=== PATIENT | male | born 1980 | race Caucasian/White ===

== ENCOUNTER 2017-03-18 16:01 | Inpatient (IN) ==
[2017-03-19] MEDS ORDERED: *HR* OxyCODONE/APAP 5/325 TABLET PO PRN (15:41)
[2017-03-19] MEDS ORDERED: Gabapentin 300 MG CAPSULE PO SCH (15:41)
[2017-03-19] MEDS ORDERED: Acetaminophen 325 MG TABLET PO SCH (16:00)
[2017-03-19] MEDS ORDERED: Acetaminophen 325 MG TABLET PO PRN (16:14)
[2017-03-19] MEDS: Cholecalciferol (D-3) 1,000 UNIT TABLET PO SCH (16:20)
[2017-03-19] MEDS: *HR* OxyCODONE Immed Rel 5 MG TABLET PO PRN ×2 (16:20→20:22)
[2017-03-19] MEDS: Methocarbamol 750 MG TABLET PO SCH ×2 (17:28→20:21)
[2017-03-19] MEDS: *HR* Heparin 5,000 UNIT/ML VIAL SQ SCH (17:28)
[2017-03-19] MEDS: Gabapentin 300 MG CAPSULE PO SCH (20:21)
[2017-03-19] MEDS: Sennosides 8.6 MG TABLET PO SCH (20:22)
[2017-03-20] MEDS: *HR* Heparin 5,000 UNIT/ML VIAL SQ SCH ×2 (06:20→17:02)
[2017-03-20] MEDS: *HR* OxyCODONE Immed Rel 5 MG TABLET PO PRN ×2 (06:20→16:05)
[2017-03-20 07:17] LABS: Basophils # 0.1 K/mcL (0.0-0.2); Basophils % 0.6 %; Eosinophils # 0.2 K/mcL (0.0-0.6); Eosinophils % 2.2 %; Hemoglobin 9.9 g/dL (12.9-16.9); Immature Granulocytes % 1.2 % (0-4); Lymphocytes # 1.9 K/mcL (0.6-4.6); Lymphocytes % 21.4 %; Mean Corpuscular Hemoglobin 28.4 pg (28.0-33.3); Mean Corpuscular Volume 86.2 fL (83.0-100.0); Mean Platelet Volume 9.5 fL (9.4-12.4); Monocytes # 0.6 K/mcL (0.0-1.3); Monocytes % 6.7 %; Neutrophils # 6.2 K/mcL (1.6-8.9); Platelet Count 295 K/mcL (140-400); Red Blood Count 3.48 M/mcL (4.19-5.50); Red Cell Distribution Width 14.1 % (11.5-14.5); Segmented Neutrophils % 67.9 %
[2017-03-20 07:18] LABS: INR 1.1
[2017-03-20] MEDS: Sennosides 8.6 MG TABLET PO SCH ×2 (08:16→20:59)
[2017-03-20] MEDS: Methocarbamol 750 MG TABLET PO SCH ×4 (08:16→20:59)
[2017-03-20] MEDS: Cholecalciferol (D-3) 1,000 UNIT TABLET PO SCH (08:16)
[2017-03-20] MEDS ORDERED: *HR* OxyCODONE/APAP 5/325 TABLET PO PRN (08:29)
[2017-03-20 08:51] LABS: BUN/Creatinine Ratio 13 (6-26); Blood Urea Nitrogen 7 mg/dL (8-26); Calcium 9.7 mg/dL (8.6-10.8); Carbon Dioxide 25 mEq/L (19-29); Chloride 104 mEq/L (98-109); Glucose 98 mg/dL (70-99); Osmolality,Calculated 288 (280-300); Potassium 4.2 mEq/L (3.5-4.5); Sodium 140 mEq/L (136-145); eGFR For African Americans > 60 (> 60); eGFR For Non-African Americans > 60 (> 60)
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
[2017-03-20] MEDS: *HR* OxyCODONE/APAP 10/325 TABLET PO PRN ×3 (12:45→21:00)
[2017-03-20] MEDS ORDERED: Lactulose 200 GM, Sodium Chloride IRRigation 700 ML RC ONE (14:59)
[2017-03-20] MEDS: Gabapentin 300 MG CAPSULE PO SCH (20:59)
[2017-03-21] MEDS: *HR* Heparin 5,000 UNIT/ML VIAL SQ SCH ×2 (06:24→18:12)
[2017-03-21] MEDS: *HR* OxyCODONE/APAP 10/325 TABLET PO PRN ×4 (06:25→20:05)
[2017-03-21] MEDS: Cholecalciferol (D-3) 1,000 UNIT TABLET PO SCH (09:06)
[2017-03-21] MEDS: Sennosides 8.6 MG TABLET PO SCH ×2 (09:06→20:05)
[2017-03-21] MEDS: Methocarbamol 750 MG TABLET PO SCH ×4 (09:06→20:05)
--- NOTE | 2017-03-21 12:09 | Internal Med Progress Note ---
Date of Encounter: 03/21/17 Time of Encounter: 12:07 - Assessment and plan (1) History of lumbar laminectomy Current Visit: Yes Status: Acute Assessment and plan: PT OT working on improving ADL, gait transfer. Father concerned about history of opiate abuse and once opiate pain medications tapered as soon as possible. 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 Denies shortness of breath. No chest pain. No nausea no vomiting. Good oral intake. - Constitutional Vitals: Temp Pulse Resp BP Pulse Ox 98 F 123 18 103/66 94 03/21/17 07:08 03/21/17 07:08 03/21/17 07:08 03/21/17 07:08 03/21/17 07:08 General appearance: Present: A&O X 3, pleasant, no acute distress - Respiratory Respiratory exam: Present: CTAB. Absent: accessory muscle use, rales, rhonchi, wheezes - Cardiovascular Cardiovascular exam: Present: RRR, +S1, +S2. Absent: diastolic murmur, gallop, rubs, systolic murmur - GI/Abdominal GI/Abdominal exam: Present: normal bowel sounds, soft, no peritoneal signs. Absent: distended, tenderness - Extremities Exam Extremities exam: Present: warm, radial pulses palpable and symetrical. Absent : calf tenderness, cyanotic, pedal edema - Incison Incision: Present: clean and dry - Neurological Exam Neurological exam: Present: no focal deficits. Absent: motor sensory deficit Internal Medicine: Result - Labs CBC & Chem 7: 03/20/17 07:05 03/20/17 07:05 - ABG Interpretation ABG results: PT/INR, D-dimer PT 12.0 Seconds (9.4-12.1) 03/20/17 07:05 Consult Discharge Plan - Plan Referrals: NO,PCP [Primary Care Provider] -
--- NOTE | 2017-03-21 12:10 | Internal Med Progress Note ---
Date of Encounter: 03/22/17 Time of Encounter: 10:50 - Assessment and plan (1) History of lumbar laminectomy Current Visit: Yes Status: Acute Assessment and plan: PT OT working on improving ADL, gait transfer. Father concerned about history of opiate abuse and once opiate pain medications tapered as soon as possible. 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 Denies shortness of breath. No chest pain. No nausea no vomiting. Good oral intake. - Constitutional Vitals: Temp Pulse Resp BP Pulse Ox 98 F 123 18 103/66 94 03/21/17 07:08 03/21/17 07:08 03/21/17 07:08 03/21/17 07:08 03/21/17 07:08 General appearance: Present: A&O X 3, pleasant, no acute distress - Respiratory Respiratory exam: Present: CTAB. Absent: accessory muscle use, rales, rhonchi, wheezes - Cardiovascular Cardiovascular exam: Present: RRR, +S1, +S2. Absent: diastolic murmur, gallop, rubs, systolic murmur - GI/Abdominal GI/Abdominal exam: Present: normal bowel sounds, soft, no peritoneal signs. Absent: distended, tenderness - Incison Incision: Present: clean and dry Internal Medicine: Result - Labs CBC & Chem 7: 03/20/17 07:05 03/20/17 07:05 - ABG Interpretation ABG results: PT/INR, D-dimer PT 12.0 Seconds (9.4-12.1) 03/20/17 07:05 Consult Discharge Plan - Plan Referrals: NO,PCP [Primary Care Provider] -
[2017-03-21] MEDS: Gabapentin 300 MG CAPSULE PO SCH (20:04)
[2017-03-22] MEDS: *HR* Heparin 5,000 UNIT/ML VIAL SQ SCH ×2 (04:30→17:34)
[2017-03-22] MEDS: *HR* OxyCODONE/APAP 10/325 TABLET PO PRN ×5 (04:31→21:32)
[2017-03-22] MEDS: Cholecalciferol (D-3) 1,000 UNIT TABLET PO SCH (09:27)
[2017-03-22] MEDS: Methocarbamol 750 MG TABLET PO SCH ×3 (09:27→17:30)
[2017-03-22] MEDS: Sennosides 8.6 MG TABLET PO SCH ×2 (09:28→21:34)
[2017-03-22] MEDS: diazePAM 5 MG TABLET PO PRN (21:32)
[2017-03-22] MEDS: Methocarbamol 500 MG TABLET PO SCH (22:34)
[2017-03-22] MEDS: Gabapentin 100 MG CAPSULE PO SCH (22:34)
[2017-03-23] MEDS: *HR* OxyCODONE/APAP 10/325 TABLET PO PRN ×5 (04:51→21:26)
[2017-03-23] MEDS: *HR* Heparin 5,000 UNIT/ML VIAL SQ SCH ×2 (04:51→17:27)
[2017-03-23 05:51] LABS: Basophils # 0.1 K/mcL (0.0-0.2); Basophils % 0.6 %; Eosinophils # 0.5 K/mcL (0.0-0.6); Eosinophils % 5.7 %; Hematocrit 29.2 % (37.5-50.1); Hemoglobin 9.6 g/dL (12.9-16.9); Immature Granulocytes % 0.9 % (0-4); Lymphocytes # 2.4 K/mcL (0.6-4.6); Mean Corpuscular HGB Conc 32.9 g/dL (31.6-35.5); Mean Corpuscular Hemoglobin 28.5 pg (28.0-33.3); Mean Corpuscular Volume 86.6 fL (83.0-100.0); Mean Platelet Volume 9.3 fL (9.4-12.4); Monocytes # 0.7 K/mcL (0.0-1.3); Monocytes % 8.5 %; Neutrophils # 4.8 K/mcL (1.6-8.9); Platelet Count 277 K/mcL (140-400); Red Blood Count 3.37 M/mcL (4.19-5.50); Red Cell Distribution Width 14.3 % (11.5-14.5); Segmented Neutrophils % 56.3 %
[2017-03-23 06:03] LABS: BUN/Creatinine Ratio 13 (6-26); Blood Urea Nitrogen 7 mg/dL (8-26); Calcium 9.4 mg/dL (8.6-10.8); Carbon Dioxide 26 mEq/L (19-29); Chloride 104 mEq/L (98-109); Glucose 85 mg/dL (70-99); Osmolality,Calculated 287 (280-300); Potassium 4.1 mEq/L (3.5-4.5); Sodium 140 mEq/L (136-145); eGFR For African Americans > 60 (> 60); eGFR For Non-African Americans > 60 (> 60)
[2017-03-23] MEDS: Gabapentin 300 MG CAPSULE PO SCH (08:07)
[2017-03-23] MEDS: Methocarbamol 750 MG TABLET PO SCH (08:07)
[2017-03-23] MEDS: Cholecalciferol (D-3) 1,000 UNIT TABLET PO SCH (09:42)
[2017-03-23] MEDS: Methocarbamol 500 MG TABLET PO SCH ×4 (09:42→21:26)
[2017-03-23] MEDS: Sennosides 8.6 MG TABLET PO SCH ×2 (09:43→21:29)
--- NOTE | 2017-03-23 14:19 | Internal Med Progress Note ---
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 - Constitutional Vitals: Temp Pulse Resp BP Pulse Ox 98.3 F 98 18 110/75 94 03/23/17 07:01 03/23/17 07:01 03/23/17 07:01 03/23/17 07:01 03/23/17 07:01 General appearance: Present: A&O X 3, pleasant, no acute distress - Head Head exam: Present: atraumatic, normal inspection, normocephalic - Neck Neck exam general surgery: Present: supple, trachea midline. Absent: lymphadenopathy - Respiratory Respiratory exam: Present: CTAB. Absent: accessory muscle use, rales, rhonchi, wheezes - Cardiovascular Cardiovascular exam: Present: RRR, +S1, +S2. Absent: diastolic murmur, gallop, rubs, systolic murmur - GI/Abdominal GI/Abdominal exam: Present: normal bowel sounds, soft, no peritoneal signs. Absent: distended, tenderness Internal Medicine: Result - Labs CBC & Chem 7: 03/23/17 04:55 03/23/17 04:55 Labs: Short CBC 03/23/17 Range/Units 04:55 WBC 8.6 (4.3-11.1) K/mcL Hgb 9.6 L (12.9-16.9) g/dL Hct 29.2 L (37.5-50.1) % Plt Count 277 (140-400) K/mcL Neutrophils # 4.8 (1.6-8.9) K/mcL BMP 03/23/17 04:55 Sodium 140 Potassium 4.1 Chloride 104 Carbon Dioxide 26 BUN 7 L Creatinine 0.55 L Glucose 85 Calcium 9.4 Lab is stable - ABG Interpretation ABG results: PT/INR, D-dimer PT 12.0 Seconds (9.4-12.1) 03/20/17 07:05 Consult Discharge Plan - Plan Referrals: NO,PCP [Primary Care Provider] -
[2017-03-23] MEDS: diazePAM 5 MG TABLET PO PRN (21:26)
[2017-03-23] MEDS: Gabapentin 100 MG CAPSULE PO SCH (21:28)
[2017-03-24] MEDS: *HR* Heparin 5,000 UNIT/ML VIAL SQ SCH ×2 (05:21→17:37)
[2017-03-24] MEDS: *HR* OxyCODONE/APAP 10/325 TABLET PO PRN ×5 (05:21→21:40)
[2017-03-24] MEDS: Methocarbamol 500 MG TABLET PO SCH ×4 (08:59→21:38)
[2017-03-24] MEDS: Cholecalciferol (D-3) 1,000 UNIT TABLET PO SCH (09:00)
[2017-03-24] MEDS: Sennosides 8.6 MG TABLET PO SCH ×2 (09:04→21:38)
--- NOTE | 2017-03-24 14:41 | Internal Med Progress Note ---
Date of Encounter: 03/24/17 Time of Encounter: 14:39 - Assessment and plan (1) History of lumbar laminectomy Current Visit: Yes Status: Acute Assessment and plan: He states the pain is reasonably controlled. 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 Doing well. - Constitutional Vitals: Temp Pulse Resp BP Pulse Ox 97.6 F 88 18 118/65 96 03/24/17 07:00 03/24/17 07:00 03/24/17 07:00 03/24/17 07:00 03/24/17 07:00 General appearance: Present: A&O X 3, pleasant, no acute distress - Head Head exam: Present: atraumatic, normal inspection, normocephalic - Neck Neck exam general surgery: Present: supple, trachea midline. Absent: lymphadenopathy - Cardiovascular Cardiovascular exam: Present: RRR, +S1, +S2. Absent: diastolic murmur, gallop, rubs, systolic murmur Internal Medicine: Result - Labs CBC & Chem 7: 03/23/17 04:55 03/23/17 04:55 Labs: Abdomen looks stable - ABG Interpretation ABG results: PT/INR, D-dimer PT 12.0 Seconds (9.4-12.1) 03/20/17 07:05 Consult Discharge Plan - Plan Referrals: NO,PCP [Primary Care Provider] -
[2017-03-24] MEDS: Gabapentin 100 MG CAPSULE PO SCH (21:38)
[2017-03-25] MEDS: *HR* Heparin 5,000 UNIT/ML VIAL SQ SCH ×2 (06:45→17:28)
[2017-03-25] MEDS: *HR* OxyCODONE/APAP 10/325 TABLET PO PRN ×5 (06:45→22:18)
[2017-03-25] MEDS: Methocarbamol 500 MG TABLET PO SCH ×4 (10:06→21:13)
[2017-03-25] MEDS: Cholecalciferol (D-3) 1,000 UNIT TABLET PO SCH (10:06)
[2017-03-25] MEDS: Sennosides 8.6 MG TABLET PO SCH ×2 (10:09→21:14)
[2017-03-25] MEDS: Gabapentin 100 MG CAPSULE PO SCH (21:14)
[2017-03-26] MEDS: *HR* Heparin 5,000 UNIT/ML VIAL SQ SCH ×2 (06:22→19:13)
[2017-03-26] MEDS: *HR* OxyCODONE/APAP 10/325 TABLET PO PRN ×5 (06:41→22:49)
[2017-03-26] MEDS: Methocarbamol 500 MG TABLET PO SCH ×4 (09:04→20:42)
[2017-03-26] MEDS: Cholecalciferol (D-3) 1,000 UNIT TABLET PO SCH (09:04)
[2017-03-26] MEDS: Sennosides 8.6 MG TABLET PO SCH ×2 (09:36→20:43)
--- NOTE | 2017-03-26 13:28 | Internal Med Progress Note ---
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 Absent: lymphadenopathy - Respiratory Respiratory exam: Present: CTAB. Absent: accessory muscle use, rales, rhonchi, wheezes - Cardiovascular Cardiovascular exam: Present: RRR, +S1, +S2. Absent: diastolic murmur, gallop, rubs, systolic murmur Internal Medicine: Result - Labs CBC & Chem 7: 03/23/17 04:55 03/23/17 04:55 Labs: Habits stable - ABG Interpretation ABG results: PT/INR, D-dimer PT 12.0 Seconds (9.4-12.1) 03/20/17 07:05 Consult Discharge Plan - Plan Referrals: NO,PCP [Primary Care Provider] -
[2017-03-26] MEDS: diazePAM 5 MG TABLET PO PRN (20:42)
[2017-03-26] MEDS: Gabapentin 100 MG CAPSULE PO SCH (20:43)
[2017-03-27] MEDS: *HR* OxyCODONE/APAP 10/325 TABLET PO PRN ×5 (05:10→21:44)
[2017-03-27] MEDS: *HR* Heparin 5,000 UNIT/ML VIAL SQ SCH ×2 (05:10→17:12)
[2017-03-27] MEDS: Methocarbamol 500 MG TABLET PO SCH ×4 (08:50→21:40)
[2017-03-27] MEDS: Cholecalciferol (D-3) 1,000 UNIT TABLET PO SCH (08:50)
[2017-03-27] MEDS: Sennosides 8.6 MG TABLET PO SCH ×2 (11:09→21:51)
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
[2017-03-27] MEDS: Gabapentin 100 MG CAPSULE PO SCH (21:43)
[2017-03-28] MEDS: *HR* OxyCODONE/APAP 10/325 TABLET PO PRN ×5 (04:27→21:13)
[2017-03-28] MEDS: *HR* Heparin 5,000 UNIT/ML VIAL SQ SCH ×2 (04:35→16:41)
[2017-03-28] MEDS: Methocarbamol 500 MG TABLET PO SCH ×4 (08:38→21:12)
[2017-03-28] MEDS: Cholecalciferol (D-3) 1,000 UNIT TABLET PO SCH (08:38)
[2017-03-28] MEDS: Sennosides 8.6 MG TABLET PO SCH ×2 (08:39→21:13)
[2017-03-28] MEDS: *HR* OxyCODONE Immed Rel 5 MG TABLET PO PRN (11:02)
--- NOTE | 2017-03-28 14:36 | Internal Med Progress Note ---
Date of Encounter: 03/28/17 Time of Encounter: 14:35 - Assessment and plan (1) History of lumbar laminectomy Current Visit: Yes Status: Acute Assessment and plan: PT and OT working on improving balance, transfer, gait improving activity of daily living. 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 Denies shortness of breath. No chest pain. No nausea no vomiting. Good oral intake. - Constitutional Vitals: Temp Pulse Resp BP Pulse Ox 98.0 F 111 16 138/93 92 03/28/17 07:00 03/28/17 07:00 03/28/17 07:00 03/28/17 07:00 03/28/17 07:00 General appearance: Present: A&O X 3, pleasant, no acute distress - Respiratory Respiratory exam: Present: CTAB. Absent: accessory muscle use, rales, rhonchi, wheezes - Cardiovascular Cardiovascular exam: Present: RRR, +S1, +S2. Absent: diastolic murmur, gallop, rubs, systolic murmur - Back Exam Back exam: Present: tenderness - Skin Skin exam: Present: dry, intact Internal Medicine: Result - Labs CBC & Chem 7: 03/23/17 04:55 03/23/17 04:55 - ABG Interpretation ABG results: PT/INR, D-dimer PT 12.0 Seconds (9.4-12.1) 03/20/17 07:05 Consult Discharge Plan - Plan Referrals: NO,PCP [Primary Care Provider] -
[2017-03-28] MEDS: Gabapentin 100 MG CAPSULE PO SCH (21:12)
[2017-03-29] MEDS: *HR* Heparin 5,000 UNIT/ML VIAL SQ SCH ×2 (04:14→16:45)
[2017-03-29] MEDS: *HR* OxyCODONE/APAP 10/325 TABLET PO PRN ×5 (04:15→21:28)
[2017-03-29] MEDS: Cholecalciferol (D-3) 1,000 UNIT TABLET PO SCH (08:41)
[2017-03-29] MEDS: Methocarbamol 500 MG TABLET PO SCH ×4 (08:41→21:27)
[2017-03-29] MEDS: Sennosides 8.6 MG TABLET PO SCH ×2 (08:42→21:28)
--- NOTE | 2017-03-29 10:20 | Internal Med Progress Note ---
Date of Encounter: 03/29/17 Time of Encounter: 10:19 - Assessment and plan (1) History of lumbar laminectomy Current Visit: Yes Status: Acute Assessment and plan: PT and OT working on improving balance, transfer, gait improving activity of daily living. 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 Complains of postop pain but controlled with Percocet and Roxicet. Denies shortness of breath. No chest pain. No nausea no vomiting. Good oral intake. - Constitutional Vitals: Temp Pulse Resp BP Pulse Ox 97.9 F 103 16 127/72 91 03/29/17 07:00 03/29/17 07:00 03/29/17 07:00 03/29/17 07:00 03/29/17 07:00 General appearance: Present: A&O X 3, pleasant, no acute distress - Respiratory Respiratory exam: Present: CTAB. Absent: accessory muscle use, rales, rhonchi, wheezes - Cardiovascular Cardiovascular exam: Present: RRR, +S1, +S2. Absent: diastolic murmur, gallop, rubs, systolic murmur - GI/Abdominal GI/Abdominal exam: Present: normal bowel sounds, soft, no peritoneal signs. Absent: distended, tenderness Internal Medicine: Result - Labs CBC & Chem 7: 03/23/17 04:55 03/23/17 04:55 - ABG Interpretation ABG results: PT/INR, D-dimer PT 12.0 Seconds (9.4-12.1) 03/20/17 07:05 Consult Discharge Plan - Plan Referrals: NO,PCP [Primary Care Provider] -
[2017-03-29] MEDS: Gabapentin 100 MG CAPSULE PO SCH (21:26)
[2017-03-30] MEDS: *HR* OxyCODONE/APAP 10/325 TABLET PO PRN ×5 (04:00→20:04)
[2017-03-30] MEDS: *HR* Heparin 5,000 UNIT/ML VIAL SQ SCH ×2 (04:00→17:46)
[2017-03-30 06:13] LABS: BUN/Creatinine Ratio 12 (6-26); Basophils % 0.5 %; Blood Urea Nitrogen 7 mg/dL (8-26); Calcium 10.6 mg/dL (8.6-10.8); Carbon Dioxide 28 mEq/L (19-29); Chloride 102 mEq/L (98-109); Eosinophils # 0.3 K/mcL (0.0-0.6); Eosinophils % 3.8 %; Glucose 96 mg/dL (70-99); Hematocrit 33.8 % (37.5-50.1); Hemoglobin 10.9 g/dL (12.9-16.9); Immature Granulocytes % 0.3 % (0-4); Lymphocytes # 1.4 K/mcL (0.6-4.6); Lymphocytes % 16.3 %; Mean Corpuscular HGB Conc 32.2 g/dL (31.6-35.5); Mean Corpuscular Hemoglobin 28.5 pg (28.0-33.3); Mean Corpuscular Volume 88.3 fL (83.0-100.0); Mean Platelet Volume 9.5 fL (9.4-12.4); Monocytes # 0.8 K/mcL (0.0-1.3); Monocytes % 8.7 %; Neutrophils # 6.1 K/mcL (1.6-8.9); Osmolality,Calculated 288 (280-300); Platelet Count 232 K/mcL (140-400); Potassium 4.1 mEq/L (3.5-4.5); Red Blood Count 3.83 M/mcL (4.19-5.50); Red Cell Distribution Width 14.2 % (11.5-14.5); Segmented Neutrophils % 70.4 %; Sodium 140 mEq/L (136-145); eGFR For African Americans > 60 (> 60); eGFR For Non-African Americans > 60 (> 60)
[2017-03-30] MEDS: Sennosides 8.6 MG TABLET PO SCH ×2 (08:11→20:06)
[2017-03-30] MEDS: Cholecalciferol (D-3) 1,000 UNIT TABLET PO SCH (08:11)
[2017-03-30] MEDS: Methocarbamol 500 MG TABLET PO SCH ×4 (09:39→20:04)
[2017-03-30] MEDS: *HR* OxyCODONE Immed Rel 5 MG TABLET PO PRN (10:07)
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
[2017-03-30] MEDS: Gabapentin 100 MG CAPSULE PO SCH (20:04)
[2017-03-30] MEDS: diazePAM 5 MG TABLET PO PRN (20:05)
[2017-03-31] MEDS: *HR* OxyCODONE/APAP 10/325 TABLET PO PRN ×6 (01:53→21:33)
[2017-03-31] MEDS: *HR* Heparin 5,000 UNIT/ML VIAL SQ SCH ×2 (05:40→17:33)
[2017-03-31] MEDS: Sennosides 8.6 MG TABLET PO SCH ×2 (08:55→21:33)
[2017-03-31] MEDS: Methocarbamol 500 MG TABLET PO SCH ×4 (08:58→21:33)
[2017-03-31] MEDS: Cholecalciferol (D-3) 1,000 UNIT TABLET PO SCH (08:59)
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
[2017-03-31] MEDS: *HR* OxyCODONE Immed Rel 5 MG TABLET PO PRN ×2 (16:45→19:50)
[2017-03-31] MEDS: diazePAM 5 MG TABLET PO PRN (19:50)
[2017-03-31] MEDS: Gabapentin 100 MG CAPSULE PO SCH (21:32)
[2017-04-01] MEDS: *HR* Heparin 5,000 UNIT/ML VIAL SQ SCH ×2 (06:16→18:51)
[2017-04-01] MEDS: *HR* OxyCODONE/APAP 10/325 TABLET PO PRN ×4 (06:17→18:49)
[2017-04-01] MEDS: *HR* OxyCODONE Immed Rel 5 MG TABLET PO PRN ×2 (08:04→20:25)
[2017-04-01] MEDS: Cholecalciferol (D-3) 1,000 UNIT TABLET PO SCH (09:46)
[2017-04-01] MEDS: Sennosides 8.6 MG TABLET PO SCH ×2 (09:47→20:25)
[2017-04-01] MEDS: Methocarbamol 500 MG TABLET PO SCH ×4 (09:47→20:24)
--- NOTE | 2017-04-01 12:44 | Physical Med Progress Note ---
Date of Encounter: 04/01/17 Time of Encounter: 12:32 Physical Medicine-PN: Subj Interval history: PMR PCC note There have been reports that the patients mother is bringing in pain medication. We will obtain a urine drug screen to determine if he is taking medications which have not been dispensed from the hospital. He continues to be max A for bed mobility. He is CGA for sit to stand. He is ambulating 130 feet with frequent rest breaks. He is max A for wheelchair transfers. We are having difficulty fitting him with a walker which is the appropriate size. Will trial him with lofstrand crutches for ambulation. Plan for home safety visit. We will arrange for a a wheelchair evaluation for a custom wheelchair. - Constitutional Vitals: Vital Signs Temp Pulse Resp BP Pulse Ox 04/01/17 07:00 98.4 F 98 18 162/77 92 03/31/17 18:37 98.1 F 110 17 161/87 92 Intake and Output 03/31/17 04/01/17 04/01/17 23:59 07:59 15:59 Intake Total 240 / 240 150 / 150 240 / 240 Output Total 450 / 450 Balance -210 / -210 150 / 150 240 / 240 Intake: Oral 240 / 240 150 / 150 240 / 240 Output: Urine 450 / 450 Other: Meal Dinner Breakfast Percent of Meal Consumed 100% 75% Physical Medicine-PN: Obj Data - Labs CBC & Chem 7: 03/30/17 05:15 03/30/17 05:15 - ABG Interpretation ABG results: PT/INR, D-dimer PT 12.0 Seconds (9.4-12.1) 03/20/17 07:05 Consult Discharge Plan - Plan Referrals: Jose Bragg MD [Other] - 04/28/17 1:10 pm NO,PCP [Primary Care Provider] -
--- NOTE | 2017-04-01 12:54 | Internal Med Progress Note ---
Date of Encounter: 04/01/17 Time of Encounter: 12:52 - Assessment and plan (1) History of lumbar laminectomy Current Visit: Yes Status: Acute Assessment and plan: Patient's working with the therapist things are moving very slowly. Patient's been essentially chair bedridden since December. He also has some damage to the leg in terms of advancing it spontaneously. We are still concerned basal conversations the staff is overheard that there is still some medication being given that is not prescribed. 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 - Constitutional Vitals: Temp Pulse Resp BP Pulse Ox 98.4 F 98 18 162/77 92 04/01/17 07:00 04/01/17 07:00 04/01/17 07:00 04/01/17 07:00 04/01/17 07:00 General appearance: Present: A&O X 3, pleasant, no acute distress - Head Head exam: Present: atraumatic, normal inspection, normocephalic - Neck Neck exam general surgery: Present: supple, trachea midline. Absent: lymphadenopathy - Respiratory Respiratory exam: Present: CTAB. Absent: accessory muscle use, rales, rhonchi, wheezes - Cardiovascular Cardiovascular exam: Present: RRR, +S1, +S2. Absent: diastolic murmur, gallop, rubs, systolic murmur Internal Medicine: Result - Labs CBC & Chem 7: 03/30/17 05:15 03/30/17 05:15 Labs: Labs okay - ABG Interpretation ABG results: PT/INR, D-dimer PT 12.0 Seconds (9.4-12.1) 03/20/17 07:05 Consult Discharge Plan - Plan Referrals: Jose Bragg MD [Other] - 04/28/17 1:10 pm NO,PCP [Primary Care Provider] -
[2017-04-01] MEDS: Gabapentin 100 MG CAPSULE PO SCH (20:24)
[2017-04-01] MEDS: diazePAM 5 MG TABLET PO PRN (20:25)
[2017-04-02] MEDS: *HR* OxyCODONE/APAP 10/325 TABLET PO PRN ×5 (01:00→20:51)
[2017-04-02] MEDS: *HR* Heparin 5,000 UNIT/ML VIAL SQ SCH ×2 (06:54→16:36)
[2017-04-02] MEDS: Cholecalciferol (D-3) 1,000 UNIT TABLET PO SCH (07:11)
[2017-04-02] MEDS: Sennosides 8.6 MG TABLET PO SCH ×2 (07:11→21:06)
[2017-04-02] MEDS: Methocarbamol 500 MG TABLET PO SCH ×4 (07:12→20:50)
--- NOTE | 2017-04-02 13:47 | Internal Med Progress Note ---
Date of Encounter: 04/02/17 Time of Encounter: 13:46 - Assessment and plan (1) History of lumbar laminectomy Current Visit: Yes Status: Acute Assessment and plan: Patient had a lumbar laminectomy to correct some nerve impingement. 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 Absent: lymphadenopathy - Respiratory Respiratory exam: Present: CTAB. Absent: accessory muscle use, rales, rhonchi, wheezes - Cardiovascular Cardiovascular exam: Present: RRR, +S1, +S2. Absent: diastolic murmur, gallop, rubs, systolic murmur Internal Medicine: Result - Labs CBC & Chem 7: 03/30/17 05:15 03/30/17 05:15 Labs: Lab looks good - ABG Interpretation ABG results: PT/INR, D-dimer PT 12.0 Seconds (9.4-12.1) 03/20/17 07:05 Consult Discharge Plan - Plan Referrals: Jose Bragg MD [Other] - 04/28/17 1:10 pm NO,PCP [Primary Care Provider] -
[2017-04-02] MEDS: *HR* OxyCODONE Immed Rel 5 MG TABLET PO PRN ×3 (14:09→23:17)
[2017-04-02 18:36] LABS: Bilirubin,Urine Negative (Negative); Blood,Urine Negative (Negative); Clarity,Urine Clear (Clear); Color,Urine Yellow (Yellow); Glucose,Urine (UA) Normal (Normal); Ketones,Urine Negative (Negative); Leukocyte Esterase,Urine Negative (Negative); Nitrite,Urine Negative (Negative); PH,Urine 6.5 pH Units (5.0-8.0); Protein,Urine Negative (Neg-Trace); Specific Gravity,Urine 1.013 (1.010-1.025); Urobilinogen,Urine Normal (Normal)
[2017-04-02] MEDS: Gabapentin 300 MG CAPSULE PO SCH (20:49)
[2017-04-03] MEDS: *HR* Heparin 5,000 UNIT/ML VIAL SQ SCH ×2 (06:09→18:25)
[2017-04-03] MEDS: *HR* OxyCODONE/APAP 10/325 TABLET PO PRN ×4 (06:09→20:21)
[2017-04-03] MEDS: Sennosides 8.6 MG TABLET PO SCH ×2 (07:55→19:52)
[2017-04-03] MEDS: Cholecalciferol (D-3) 1,000 UNIT TABLET PO SCH (07:55)
[2017-04-03] MEDS: Methocarbamol 500 MG TABLET PO SCH ×4 (07:55→20:20)
[2017-04-03] MEDS: *HR* OxyCODONE Immed Rel 5 MG TABLET PO PRN ×4 (08:29→22:13)
[2017-04-03] MEDS ORDERED: *HR* OxyCODONE/APAP 5/325 TABLET PO PRN (11:10)
--- NOTE | 2017-04-03 13:41 | Internal Med Progress Note ---
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 He needs the bed because he needs to adhere to his back precautions due to recent laminectomy. He is unable to change position on his own. If he does he will breakup back precautions. He needs the bed to alleviate pain and pressure. He is unable to roll and he needs a bed to adhere to his current precautions. - Constitutional Vitals: Temp Pulse Resp BP Pulse Ox 98.0 F 108 17 159/78 91 04/03/17 07:23 04/03/17 07:23 04/03/17 07:23 04/03/17 07:23 04/03/17 07:23 General appearance: Present: A&O X 3, pleasant, no acute distress - Head Head exam: Present: atraumatic, normal inspection, normocephalic - Neck Neck exam general surgery: Present: supple, trachea midline. Absent: lymphadenopathy - Respiratory Respiratory exam: Present: CTAB. Absent: accessory muscle use, rales, rhonchi, wheezes - Cardiovascular Cardiovascular exam: Present: RRR, +S1, +S2. Absent: diastolic murmur, gallop, rubs, systolic murmur Internal Medicine: Result - Labs CBC & Chem 7: 03/30/17 05:15 03/30/17 05:15 Labs: Urine 04/01/17 Range/Units 14:32 Urine Color Yellow (Yellow) Urine Clarity Clear (Clear) Urine pH 6.5 (5.0-8.0) pH Units Ur Specific [place] 1.013 (1.010-1.025) Urine Protein Negative (Neg-Trace) mg/dL Urine Glucose (UA) Normal (Normal) mg/dL Lab is stable - ABG Interpretation ABG results: PT/INR, D-dimer PT 12.0 Seconds (9.4-12.1) 03/20/17 07:05 Consult Discharge Plan - Plan Referrals: Jose Bragg MD [Other] - 04/28/17 1:10 pm NO,PCP [Primary Care Provider] -
[2017-04-03] MEDS: Gabapentin 300 MG CAPSULE PO SCH (20:19)
[2017-04-04] MEDS: *HR* OxyCODONE/APAP 10/325 TABLET PO PRN ×5 (03:09→20:21)
[2017-04-04] MEDS: *HR* Heparin 5,000 UNIT/ML VIAL SQ SCH ×2 (05:58→17:47)
[2017-04-04] MEDS: *HR* OxyCODONE Immed Rel 5 MG TABLET PO PRN ×4 (05:59→17:43)
[2017-04-04] MEDS: Methocarbamol 500 MG TABLET PO SCH ×4 (08:04→20:19)
[2017-04-04] MEDS: Cholecalciferol (D-3) 1,000 UNIT TABLET PO SCH (08:04)
[2017-04-04] MEDS: Sennosides 8.6 MG TABLET PO SCH ×2 (08:05→20:23)
--- NOTE | 2017-04-04 10:55 | Internal Med Progress Note ---
Date of Encounter: 04/04/17 Time of Encounter: 10:53 - Assessment and plan (1) History of lumbar laminectomy Current Visit: Yes Status: Acute Assessment and plan: Improving with PT and OT in terms of endurance and gait. 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 He feels that he is getting better. Feels stronger. Complains of postop pain but controlled with Percocet and Roxicet. Denies shortness of breath. No chest pain. No nausea no vomiting. Good oral intake. - Constitutional Vitals: Temp Pulse Resp BP Pulse Ox 98.5 F 100 18 153/76 92 04/04/17 07:26 04/04/17 07:26 04/04/17 07:26 04/04/17 07:26 04/04/17 07:26 General appearance: Present: A&O X 3, pleasant, no acute distress - Respiratory Respiratory exam: Present: CTAB. Absent: accessory muscle use, rales, rhonchi, wheezes - GI/Abdominal GI/Abdominal exam: Present: normal bowel sounds, soft, no peritoneal signs. Absent: distended, tenderness - Extremities Exam Extremities exam: Present: pedal edema, warm, radial pulses palpable and symetrical. Absent: calf tenderness, cyanotic - Back Exam Back exam: Present: tenderness Internal Medicine: Result - Labs CBC & Chem 7: 03/30/17 05:15 03/30/17 05:15 - ABG Interpretation ABG results: PT/INR, D-dimer PT 12.0 Seconds (9.4-12.1) 03/20/17 07:05 Consult Discharge Plan - Plan Referrals: Jose Bragg MD [Other] - 04/28/17 1:10 pm NO,PCP [Primary Care Provider] -
[2017-04-04] MEDS: Gabapentin 300 MG CAPSULE PO SCH (20:20)
[2017-04-05] MEDS: *HR* OxyCODONE/APAP 10/325 TABLET PO PRN ×5 (01:19→20:55)
[2017-04-05] MEDS: *HR* Heparin 5,000 UNIT/ML VIAL SQ SCH ×2 (06:12→17:26)
[2017-04-05] MEDS: Cholecalciferol (D-3) 1,000 UNIT TABLET PO SCH (08:01)
[2017-04-05] MEDS: Sennosides 8.6 MG TABLET PO SCH ×2 (08:01→20:55)
[2017-04-05] MEDS: Methocarbamol 500 MG TABLET PO SCH ×4 (08:01→20:54)
[2017-04-05] MEDS: *HR* OxyCODONE Immed Rel 5 MG TABLET PO PRN ×4 (10:42→23:03)
[2017-04-05] MEDS: Gabapentin 300 MG CAPSULE PO SCH (20:54)
[2017-04-06] MEDS: *HR* OxyCODONE/APAP 10/325 TABLET PO PRN ×5 (05:54→21:23)
[2017-04-06] MEDS: *HR* Heparin 5,000 UNIT/ML VIAL SQ SCH ×2 (05:55→17:34)
[2017-04-06 06:54] LABS: BUN/Creatinine Ratio 12 (6-26); Blood Urea Nitrogen 7 mg/dL (8-26); Calcium 10.7 mg/dL (8.6-10.8); Carbon Dioxide 27 mEq/L (19-29); Chloride 100 mEq/L (98-109); Glucose 97 mg/dL (70-99); Osmolality,Calculated 286 (280-300); Potassium 4.6 mEq/L (3.5-4.5); Sodium 139 mEq/L (136-145); eGFR For African Americans > 60 (> 60); eGFR For Non-African Americans > 60 (> 60)
[2017-04-06 07:14] LABS: Basophils # 0.1 K/mcL (0.0-0.2); Basophils % 0.7 %; Eosinophils # 0.3 K/mcL (0.0-0.6); Eosinophils % 4.6 %; Hematocrit 36.1 % (37.5-50.1); Hemoglobin 11.6 g/dL (12.9-16.9); Immature Granulocytes % 0.4 % (0-4); Lymphocytes # 1.4 K/mcL (0.6-4.6); Lymphocytes % 21.2 %; Mean Corpuscular HGB Conc 32.1 g/dL (31.6-35.5); Mean Platelet Volume 9.7 fL (9.4-12.4); Monocytes # 0.6 K/mcL (0.0-1.3); Monocytes % 8.3 %; Neutrophils # 4.4 K/mcL (1.6-8.9); Platelet Count 240 K/mcL (140-400); Red Blood Count 4.15 M/mcL (4.19-5.50); Red Cell Distribution Width 13.2 % (11.5-14.5); Segmented Neutrophils % 64.8 %
[2017-04-06] MEDS: *HR* OxyCODONE Immed Rel 5 MG TABLET PO PRN ×4 (08:16→18:58)
[2017-04-06] MEDS: Cholecalciferol (D-3) 1,000 UNIT TABLET PO SCH (08:16)
[2017-04-06] MEDS: Sennosides 8.6 MG TABLET PO SCH ×2 (08:17→19:37)
[2017-04-06] MEDS: Methocarbamol 500 MG TABLET PO SCH ×6 (08:28→19:37)
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
[2017-04-06] MEDS: Gabapentin 300 MG CAPSULE PO SCH (19:36)
[2017-04-07] MEDS: *HR* OxyCODONE/APAP 10/325 TABLET PO PRN ×5 (03:53→20:55)
[2017-04-07] MEDS: Methocarbamol 500 MG TABLET PO SCH ×4 (07:55→20:55)
[2017-04-07] MEDS: Sennosides 8.6 MG TABLET PO SCH ×2 (07:56→20:55)
[2017-04-07] MEDS: Cholecalciferol (D-3) 1,000 UNIT TABLET PO SCH (07:56)
[2017-04-07] MEDS: *HR* OxyCODONE Immed Rel 5 MG TABLET PO PRN ×2 (11:20→18:12)
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
[2017-04-07] MEDS: Gabapentin 300 MG CAPSULE PO SCH (20:55)
[2017-04-08] MEDS: *HR* OxyCODONE/APAP 10/325 TABLET PO PRN ×5 (06:04→23:34)
[2017-04-08] MEDS: *HR* OxyCODONE Immed Rel 5 MG TABLET PO PRN ×3 (07:41→18:13)
[2017-04-08] MEDS: Cholecalciferol (D-3) 1,000 UNIT TABLET PO SCH (07:41)
[2017-04-08] MEDS: Methocarbamol 500 MG TABLET PO SCH ×4 (07:41→21:02)
[2017-04-08] MEDS: Sennosides 8.6 MG TABLET PO SCH ×2 (07:42→21:03)
--- NOTE | 2017-04-08 13:50 | Physical Med Progress Note ---
Date of Encounter: 04/08/17 Time of Encounter: 13:48 Physical Medicine-PN: Subj Interval history: PMR PCC note Mr. Atkinson is able to use steps to get in and out of the car with min A. He is ambulating 50 feet with SBA/CGA with a standard walker. His participation with therapy has been sporadic. Plan for continued PT/OT/TR. Discharge to home on 04/10/17. - Constitutional Vitals: Vital Signs Temp Pulse Resp BP Pulse Ox 04/08/17 06:59 98.2 F 92 18 130/77 92 04/07/17 20:33 97.4 F L 98 17 120/80 92 Intake and Output 04/07/17 04/08/17 04/08/17 23:59 07:59 15:59 Intake Total 120 / 120 900 / 900 480 / 480 Output Total 1050 / 1050 Balance 120 / 120 -150 / -150 480 / 480 Intake: Oral 120 / 120 480 / 480 Other 900 / 900 Output: Urine 1050 / 1050 Other: Meal Dinner Lunch Percent of Meal Consumed 40% 100% Physical Medicine-PN: Obj Data - Labs CBC & Chem 7: 04/06/17 06:30 04/06/17 06:30 - ABG Interpretation ABG results: PT/INR, D-dimer PT 12.0 Seconds (9.4-12.1) 03/20/17 07:05 Consult Discharge Plan - Plan Referrals: Jose Bragg MD [Other] - 04/28/17 1:10 pm NO,PCP [Primary Care Provider] -
[2017-04-08] MEDS: Gabapentin 300 MG CAPSULE PO SCH (21:02)
[2017-04-09] MEDS: *HR* OxyCODONE/APAP 10/325 TABLET PO PRN ×4 (06:30→19:59)
[2017-04-09] MEDS: *HR* OxyCODONE Immed Rel 5 MG TABLET PO PRN ×3 (08:31→18:49)
[2017-04-09] MEDS: Cholecalciferol (D-3) 1,000 UNIT TABLET PO SCH (08:31)
[2017-04-09] MEDS: Sennosides 8.6 MG TABLET PO SCH ×2 (08:31→20:02)
[2017-04-09] MEDS: Methocarbamol 500 MG TABLET PO SCH ×4 (08:32→19:59)
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
[2017-04-09] MEDS: Gabapentin 300 MG CAPSULE PO SCH (19:59)
[2017-04-10] MEDS: *HR* OxyCODONE/APAP 10/325 TABLET PO PRN ×3 (01:05→12:05)
[2017-04-10 07:02] VITALS: BP 131/84
[2017-04-10] MEDS: Methocarbamol 500 MG TABLET PO SCH ×2 (07:52→12:05)
[2017-04-10] MEDS: Cholecalciferol (D-3) 1,000 UNIT TABLET PO SCH (07:53)
[2017-04-10] MEDS: Sennosides 8.6 MG TABLET PO SCH (07:54)
[2017-04-10] MEDS: *HR* OxyCODONE Immed Rel 5 MG TABLET PO PRN (10:32)
--- NOTE | 2017-04-10 11:42 | Discharge Summary ---
Date of Encounter: 04/10/17 Time of Encounter: 11:40 - Discharge Diagnosis (1) History of lumbar laminectomy Priority: Primary Status: Acute (2) Achondroplastic dwarfism Priority: Secondary Status: Chronic - Discharge Medications Home Medications: Acetaminophen [Tylenol] 325 mg PO Q4HR 03/19/17 [History] Docusate [Colace] 100 mg PO BID 03/19/17 [History] Ergocalciferol (VITAMIN D2) [Vitamin D2] 50,000 unit PO QWEEK 03/19/17 [History] Gabapentin [Neurontin] 300 mg PO TID 03/19/17 [History] Heparin 5,000 unit SQ Q12HR 03/19/17 [History] Lidocaine 1 each TP 12 03/19/17 [History] Methocarbamol [Robaxin-750] 750 mg PO QID 03/19/17 [History] OxyCODONE Immed Rel [Roxicodone 5 MG] 5 mg PO Q4HR PRN 03/19/17 [History] Oxycodone HCl/Acetaminophen [Percocet 5-325 mg Tablet] 1 tab PO Q4H PRN [History] Polyethylene Glycol 3350 [Smoothlax] 17 gm PO DAILY 03/19/17 [History] Sennosides [Senna] 8.6 mg PO BID 03/19/17 [History] diazePAM [Valium] 5 mg PO TID PRN 03/19/17 [History] Allergies/Adverse Reactions: Allergies Apple Allergy (Verified 03/19/17 15:00) Rash blue dye Allergy (Verified 03/19/17 15:00) Rash Date of admission: 03/19/17 15:37 Primary care physician: PCP NO Consults: 03/19/17 15:32 Consult to Occupational Therapy [CONS] Routine Comment: s/p laminectomy Consult to Physical Therapy [CONS] Routine Comment: s/p laminectomy Consult to Recreational Therapy [CONS] Routine Comment: Consult to [employer] [CONS] Routine Reason for SW Consult: d/c planning, possible post discharge arrangements Discharging clinician: Fitz Anthony Anticipated date of discharge: 04/10/17 - Patient Status Disposition: Home Health Service Condition: Good Functional capacity at discharge: uses cane/walker Overall status at discharge: patient is progressing back to baseline - Discharge Instructions Follow Up With: Jose Bragg MD [Other] - 04/28/17 1:10 pm NO,PCP [Primary Care Provider] - - Diet and Activity Activity: ambulate only with your walker Diet: advance to your usual diet Interval History: Patient is status post lumbar laminectomy for decompression. Spinal stenosis. Hospital course: Mr. Atkinson is a 36 year old male Patient has worked with the therapist and will continue to receive home health - Time Spent with Patient Total time spent providing and/or coordinating discharge services: Less than 30 minutes - Constitutional Vitals: Temp Pulse Resp BP Pulse Ox 98.0 F 88 18 131/84 92 04/10/17 07:00 04/10/17 07:04 04/10/17 07:04 04/10/17 07:04 04/10/17 07:04 General appearance: Present: A&O X 3, pleasant, no acute distress - Head Head exam: Present: atraumatic, normal inspection, normocephalic - Neck Neck exam general surgery: Present: supple, trachea midline. Absent: lymphadenopathy - Respiratory Respiratory exam: Present: CTAB. Absent: accessory muscle use, rales, rhonchi, wheezes - Cardiovascular Cardiovascular exam: Present: RRR, +S1, +S2. Absent: diastolic murmur, gallop, rubs, systolic murmur
--- NOTE | 2017-04-10 11:43 | Physician Discharge Referral ---
- Diagnosis (1) History of lumbar laminectomy Priority: Primary Status: Acute (2) Achondroplastic dwarfism Priority: Secondary Status: Chronic - Respiratory Orders Smoking Cessation: Smoking cessation has been advised. For more information, call the [place] Tobacco Quit Line at 5-713-MIWG-NOW. - Diet/Nutrition Diet/Nutrition Orders: Regular - Activity Activity Orders: Walker - Services Needed Following services are medically necessary services: Nursing, Physical Therapy - Transfer Medications Home Medications: Acetaminophen [Tylenol] 325 mg PO Q4HR 03/19/17 [History] Docusate [Colace] 100 mg PO BID 03/19/17 [History] Ergocalciferol (VITAMIN D2) [Vitamin D2] 50,000 unit PO QWEEK 03/19/17 [History] Gabapentin [Neurontin] 300 mg PO TID 03/19/17 [History] Heparin 5,000 unit SQ Q12HR 03/19/17 [History] Lidocaine 1 each TP 12 03/19/17 [History] Methocarbamol [Robaxin-750] 750 mg PO QID 03/19/17 [History] OxyCODONE Immed Rel [Roxicodone 5 MG] 5 mg PO Q4HR PRN 03/19/17 [History] Oxycodone HCl/Acetaminophen [Percocet 5-325 mg Tablet] 1 tab PO Q4H PRN [History] Polyethylene Glycol 3350 [Smoothlax] 17 gm PO DAILY 03/19/17 [History] Sennosides [Senna] 8.6 mg PO BID 03/19/17 [History] diazePAM [Valium] 5 mg PO TID PRN 03/19/17 [History] Allergies/Adverse Reactions: Allergies Apple Allergy (Verified 03/19/17 15:00) Rash blue dye Allergy (Verified 03/19/17 15:00) Rash Certification: Further, I certify that my clinical findings support that this patient is homebound (i.e. absences from home require considerable and taxing effort and are for medical reasons or yarsanism services or infrequently or short duration when for other reasons) because: Homebound Reason: Patient requires assistance of a person or device to safely leave home Attestation: My signature below is to certify that this patient is under my care and that I, or nurse practitioner, or a physician's temporary administrative assistant working with me, has a face-to -face encounter with this patient.
== END 2017-04-10 13:45 | disposition home health service (06) | DRG 950 ==
LOC: INPGRE 03-19 15:37
PROVIDERS: ADMIT Internal Medicine; ATTEND Internal Medicine